=== PATIENT | female | born 1945 | race Caucasian/White ===

== ENCOUNTER → 2019-11-20 19:16 | Outpatient (ROUT) | payer MEDICARE, OTHER, SELFPAY ==
[2019-11-20 19:28] LABS: Aspartate Aminotransferase 20 IU/L (14-36); BUN Creatinine Ratio 21.1 (6-22); Blood Urea Nitrogen 19 mg/dL (7-17); Calcium 9.6 mg/dL (8.4-10.2); Carbon Dioxide 30 mmol/L (22-32); Chloride 103 mmol/L (98-107); Cholesterol 156 mg/dL (140-199); Estimated Glomerular Filt Rate > 60.0 mL/min (>60); Glucose 71 mg/dL (80-110); HDL Cholesterol 53 mg/dL (40-60); HEMOLYSIS < 15 (0-50); LDL Cholesterol Calculated 79 mg/dL (<100); Potassium 3.7 mmol/L (3.4-5.1); Sodium 142 mmol/L (137-145); Triglycerides 121 mg/dL (35-150)
== END ==
PROVIDERS: PCP Internal Medicine; Visit Provider Internal Medicine
DX: I10 Essential (primary) hypertension (principal); E78.2 Mixed hyperlipidemia
CPT/HCPCS: 80048; 80061; 84450

== ENCOUNTER → 2020-11-25 15:12 | Outpatient (ROUT) | payer MEDICARE, BC, SELFPAY ==
[2020-11-25 15:44] LABS: Aspartate Aminotransferase 22 IU/L (14-36); BUN Creatinine Ratio 21.4 (6-22); Blood Urea Nitrogen 18 mg/dL (7-17); Calcium 9.5 mg/dL (8.4-10.2); Carbon Dioxide 35 mmol/L (22-32); Chloride 101 mmol/L (98-107); Cholesterol 166 mg/dL (140-199); Estimated Glomerular Filt Rate > 60.0 mL/min (>60); Glucose 89 mg/dL (80-110); HDL Cholesterol 56 mg/dL (40-60); HEMOLYSIS < 15 (0-50); LDL Cholesterol Calculated 88 mg/dL (<100); Sodium 138 mmol/L (137-145); Triglycerides 108 mg/dL (35-150)
== END ==
PROVIDERS: PCP Internal Medicine; Visit Provider Internal Medicine
DX: I10 Essential (primary) hypertension (principal); E78.2 Mixed hyperlipidemia
CPT/HCPCS: 80048; 80061; 84450

== ENCOUNTER → 2021-12-29 10:05 | Outpatient (CLI) | payer MEDICARE, BC, SELFPAY ==
[2021-12-29 12:05] LABS: Add Manual Diff / Slide Review NO; Basophils Absolute Auto 100 /uL (0-100); Basophils Percent Auto 0.9 % (0-2); Eosinophils Absolute Auto 100 /uL (0-450); Eosinophils Percent Auto 2.3 % (2-4); Hematocrit 40.5 % (36-46); Lymphocytes Absolute Auto 1100 /uL (1100-4500); Lymphocytes Percent Auto 20.1 % (25-40); Mean Corpuscular HGB Conc 34.5 % (30-36); Mean Corpuscular Hemoglobin 30.1 PG (26-34); Mean Corpuscular Volume 87.2 fL (80-100); Monocytes Absolute Auto 400 /uL (0-900); Monocytes Percent Auto 7.8 % (3-14); Neutrophils Absolute Auto 3900 /uL (1500-7000); Neutrophils Percent Auto 68.9 % (50-75); Platelet Count 196 X10^3/uL (150-400); Red Blood Cell Count 4.64 X10^6/uL (4.0-5.2); Red Cell Distribution Width 13.5 % (11.6-14.8); White Blood Cell Count 5.7 X10^3/uL (4.5-11.0)
[2021-12-29 12:14] LABS: Alanine Aminotransferase 15 IU/L (<35); Albumin 4.8 g/dL (3.5-5.0); Albumin Globulin Ratio 1.3 (1.0-2.8); Alkaline Phosphatase 61 U/L (38-126); Aspartate Aminotransferase 24 IU/L (14-36); Bilirubin Total 0.8 mg/dL (0.2-1.3); Blood Urea Nitrogen 20 mg/dL (7-17); Calcium 9.4 mg/dL (8.4-10.2); Carbon Dioxide 32 mmol/L (22-32); Chloride 101 mmol/L (98-107); Cholesterol 188 mg/dL (140-199); Estimated Glomerular Filt Rate > 60 mL/min (>60); Globulin 3.6 g/dL (1.7-4.1); Glucose 94 mg/dL (80-110); HDL Cholesterol 65 mg/dL (40-60); HEMOLYSIS 27 (0-50); LDL Cholesterol Calculated 99 mg/dL (<100); Potassium 3.8 mmol/L (3.4-5.1); Sodium 142 mmol/L (137-145); Total Protein 8.4 g/dL (6.3-8.2); Triglycerides 122 mg/dL (35-150)
[2021-12-29 12:43] LABS: TSH w/ Reflex to FT4 3.33 uIU/mL (0.47-4.68)
== END ==
PROVIDERS: PCP Internal Medicine; Referring Provider Internal Medicine; Visit Provider Internal Medicine
DX: E78.2 Mixed hyperlipidemia (principal); I10 Essential (primary) hypertension
CPT/HCPCS: 36415; 80053; 80061; 84443; 85025

== ENCOUNTER → 2023-01-02 09:14 | Outpatient (CLI) | payer MEDICARE, BC, SELFPAY ==
[2023-01-02 10:25] LABS: Aspartate Aminotransferase 22 IU/L (14-36); BUN Creatinine Ratio 18.6 (6-22); Blood Urea Nitrogen 16 mg/dL (7-17); Calcium 9.5 mg/dL (8.4-10.2); Carbon Dioxide 33 mmol/L (22-32); Chloride 100 mmol/L (98-107); Cholesterol 190 mg/dL (140-199); Estimated Glomerular Filt Rate > 60 mL/min (>60); Glucose 98 mg/dL (80-110); HDL Cholesterol 77 mg/dL (40-60); HEMOLYSIS < 15 (0-50); LDL Cholesterol Calculated 97 mg/dL (<100); Potassium 3.7 mmol/L (3.4-5.1); Sodium 140 mmol/L (137-145); Triglycerides 81 mg/dL (35-150)
== END ==
PROVIDERS: PCP Internal Medicine; Referring Provider Internal Medicine; Visit Provider Internal Medicine
DX: E78.2 Mixed hyperlipidemia (principal); I10 Essential (primary) hypertension
CPT/HCPCS: 36415; 80048; 80061; 84450

== ENCOUNTER → 2024-02-08 14:59 | Outpatient (CLI) | payer MEDICARE, BC, SELFPAY ==
[2024-02-08 17:27] LABS: Aspartate Aminotransferase 21 IU/L (14-36); BUN Creatinine Ratio 22.7 (6-22); Blood Urea Nitrogen 17 mg/dL (7-17); Calcium 8.8 mg/dL (8.4-10.2); Carbon Dioxide 30 mmol/L (22-32); Chloride 103 mmol/L (98-107); Cholesterol 142 mg/dL (140-199); Estimated Glomerular Filt Rate > 60 mL/min (>60); Glucose 107 mg/dL (80-110); HDL Cholesterol 57 mg/dL (40-60); HEMOLYSIS < 15 (0-50); LDL Cholesterol Calculated 33 mg/dL (<100); Potassium 3.7 mmol/L (3.4-5.1); Sodium 139 mmol/L (137-145); Triglycerides 261 mg/dL (35-150)
== END ==
PROVIDERS: PCP Internal Medicine; Referring Provider Internal Medicine; Visit Provider Internal Medicine
DX: I10 Essential (primary) hypertension (principal); E78.2 Mixed hyperlipidemia
CPT/HCPCS: 36415; 80048; 80061; 84450

== ENCOUNTER → 2024-02-22 10:24 | Outpatient (CLI) | payer MEDICARE, BC, SELFPAY ==
--- NOTE | 2024-02-22 10:26 | DI.RAD.S_ITS ---
PROCEDURE: XR DEXA AXIAL SKELETON INDICATIONS: menopausal COMPARISON: [facility], , DEXA AXIAL SKELETON, 10/05/2016, 16:01. FINDINGS: Lumbar Spine: Bone mineral density 1.3-2 g/cm2, T score 2.4. Left Hip: Bone mineral density 0.933 g/cm2, T score -0.1. Left Femoral Neck: Bone mineral density 0.751 g/cm2, T score -0.9. Right Hip: Bone mineral density 0.926 g/cm2, T score -0.1. Right Femoral Neck: Bone mineral density 0.812 g/cm2, T score -0.3. Fracture Risk Calculation (when applicable): 10-year fracture risk of a major osteoporotic fracture 11% and of a hip fracture 1.8 %. (T score greater or equal to -1.0 to: NORMAL) (T score from -1.1 to -2.4: OSTEOPENIA) (T score less than or equal to -2.5: OSTEOPOROSIS) IMPRESSION: Normal bone mineral density Follow-up guidelines as follows: Osteoporosis: Consider a repeat DEXA and Vertebral Fracture Assessment (VFA) exam in 2 years or sooner if medically necessary, to reassess this patient's status. Osteopenia: Consider a repeat DEXA in 2-3 years to reassess this patient's status, or if there is a new clinical indication. Normal: Consider a repeat DEXA in 5 years or sooner, or if there is a new clinical indication. All treatment decisions require clinical judgment and consideration of individual patient factors, including patient preferences, comorbidities, previous drug use, risk factors not captured in the FRAX model (e.g., frailty, falls, vitamin D deficiency, increased bone turnover, interval significant decline in bone density ) and possible under- or over-estimation of fracture risk by FRAX. In addition, the NOF Guide recommends that FDA-approved medical therapies be considered in postmenopausal women and men age >= 50 years with a: * Hip or vertebral (clinical or morphometric) fracture * T-score of <=-2.5 at the spine or hip * Ten-year fracture probability by FRAX of >= 3% for hip fracture or >=20% for major osteoporotic fracture. People with diagnosed cases of osteoporosis or at high risk for fracture should have regular bone mineral density tests. For patients eligible for Medicare, routine testing is allowed once every 2 years. The testing frequency can be increased to one year for patients who have rapidly progressing disease, those who are receiving or discontinuing medical therapy to restore bone mass, or have additional risk factors. Dictated by: Dennis Barry M.D. on 02/22/2024 at 14:17 Approved by: eDnnis Barry M.D. on 02/22/2024 at 14:20
== END ==
LOC: RAD 10:25
PROVIDERS: PCP Internal Medicine; Referring Provider Internal Medicine; Visit Provider Internal Medicine
DX: M85.89 Other specified disorders of bone density and structure, multiple sites (principal)
CPT/HCPCS: 77080

== ENCOUNTER → 2024-06-25 11:13 | Outpatient (CLI) | payer MEDICARE, BC, SELFPAY ==
--- NOTE | 2024-06-25 11:14 | DI.MRI.S_ITS ---
PROCEDURE: MR HIP RT WO CON INDICATIONS: R/O RIGHT HIP ABDUCTOR TEAR TECHNIQUE: Noncontrast coronal T1 spin echo and STIR through the bony pelvis. Coronal and axial T2 fast spin echo with fat saturation, sagittal T1 spin echo, and oblique axial T2 fast spin echo with fat saturation through the hip. COMPARISON: None. FINDINGS: Image quality: Excellent. Bones and joints: Mild fibrovascular end plate change at the left aspect of L5-S1. The marrow signal of the sacrum, and bilateral sacroiliac joints are unremarkable. No acute fracture or dislocation of either hip. No avascular necrosis of either femoral head. No significant degenerative changes of either hip. Tendons and ligaments: The right iliopsoas, and adductor tendon are unremarkable. The right hamstring tendon is unremarkable. There is full-thickness tear of the left gluteal minimus at the greater trochanteric insertion, without tendon retraction. Mild tendinosis of the gluteal medius with high-grade tear. Small right greater trochanteric bursitis. Labrum and cartilage: Circumferential labral tear. No paralabral cyst. Soft tissues: Small T2 hypointensity in the uterus, likely representing a small uterine fibroid, measuring 1.2 cm. IMPRESSION: 1. Full-thickness tear of the left gluteal minimus at the greater trochanteric insertion, without tendon retraction. 2. High-grade tear of the right gluteal medius with mild right greater trochanteric bursitis. Dictated by: Eneida Conner M.D. on 06/25/2024 at 12:32 Approved by: Eneida Conner M.D. on 06/25/2024 at 12:42
== END ==
PROVIDERS: PCP Internal Medicine; Referring Provider Orthopaedic Surgery; Visit Provider Orthopaedic Surgery
DX: S76.012A Strain of muscle, fascia and tendon of left hip, initial encounter (principal); S76.011A Strain of muscle, fascia and tendon of right hip, initial encounter; M70.61 Trochanteric bursitis, right hip; X58.XXXA Exposure to other specified factors, initial encounter
CPT/HCPCS: 73721

== ENCOUNTER → 2025-02-05 14:17 | Outpatient (CLI) | payer MEDICARE, BC, SELFPAY ==
--- NOTE | 2025-02-05 14:21 | DI.MG.S_ITS ---
MM screening mammo BI: 02/05/2025. BI-RADS: 1 CLINICAL: 80-year old female for bilateral screening mammogram. Tyrer-Cuzick lifetime risk of 4.7%. Current reported family history of breast cancer: sister. The patient had a prior left breast biopsy. PRIOR EXAMS: 12/18/23,12/16/22,09/28/21,08/28/20. MAMMOGRAPHY TECHNIQUE: 2D and 3D (tomosynthesis) digital mammographic views obtained, with additional images as needed for full coverage. Current study was also evaluated with a Computer Aided Detection (CAD) system. DENSITY C. The breasts are heterogeneously dense, which may obscure small masses. MAMMOGRAPHY FINDINGS Bilateral: No suspicious mass, asymmetry, microcalcification, or other abnormality seen. IMPRESSION: * No evidence of malignancy. RECOMMENDATIONS Bilateral * Annual screening mammography. OVERALL ASSESSMENT CATEGORY BI-RADS-1: Negative. The [employer] recommends annual screening mammography beginning at age 40 for women with average risk of breast cancer. ELECTRONICALLY SIGNED: Dennis Barry M.D. on 02/06/2025 at 08:16:12 AM PT Interpreting Station ID: [id number]
== END ==
PROVIDERS: PCP Internal Medicine; Referring Provider Internal Medicine; Visit Provider Internal Medicine
DX: Z12.31 Encounter for screening mammogram for malignant neoplasm of breast (principal); R92.333 Mammographic heterogeneous density, bilateral breasts; Z80.3 Family history of malignant neoplasm of breast
CPT/HCPCS: 77063; 77067

== ENCOUNTER → 2025-02-12 08:50 | Outpatient (CLI) | payer MEDICARE, BC, SELFPAY ==
[2025-02-12 10:40] LABS: Aspartate Aminotransferase 22 IU/L (14-36); BUN Creatinine Ratio 16.5 (6-22); Blood Urea Nitrogen 15 mg/dL (7-17); Calcium 9.8 mg/dL (8.4-10.2); Carbon Dioxide 31 mmol/L (22-32); Chloride 101 mmol/L (98-107); Cholesterol 186 mg/dL (140-199); Estimated Glomerular Filt Rate > 60 mL/min (>60); Glucose 85 mg/dL (70-99); HDL Cholesterol 76 mg/dL (40-60); HEMOLYSIS < 15 (0-50); LDL Cholesterol Calculated 93 mg/dL (<100); Potassium 3.8 mmol/L (3.4-5.1); Sodium 139 mmol/L (137-145); Triglycerides 87 mg/dL (35-150)
== END ==
PROVIDERS: PCP Internal Medicine; Referring Provider Internal Medicine; Visit Provider Internal Medicine
DX: I10 Essential (primary) hypertension (principal); E78.2 Mixed hyperlipidemia
CPT/HCPCS: 36415; 80048; 80061; 84450

== ENCOUNTER → 2025-04-09 14:03 | Outpatient (CLI) | payer MEDICARE, BC, SELFPAY ==
[2025-04-09 14:39] LABS: Add Manual Diff / Slide Review NO; Hematocrit 37.0 % (36-46); Hemoglobin 12.7 g/dL (12.0-16.0); Lymphocytes Absolute Auto 1100 /uL (1100-4500); Mean Corpuscular HGB Conc 34.4 % (30-36); Mean Corpuscular Hemoglobin 30.1 PG (26-34); Mean Corpuscular Volume 87.3 fL (80-100); Platelet Count 192 X10^3/uL (150-400)
[2025-04-09 15:01] LABS: Alanine Aminotransferase 15 IU/L (<35); Albumin 4.3 g/dL (3.5-5.0); Albumin Globulin Ratio 1.6 (1.0-2.8); Alkaline Phosphatase 67 U/L (38-126); Blood Urea Nitrogen 18 mg/dL (7-17); Calcium 9.3 mg/dL (8.4-10.2); Carbon Dioxide 27 mmol/L (22-32); Chloride 101 mmol/L (98-107); Estimated Glomerular Filt Rate > 60 mL/min (>60); Globulin 2.7 g/dL (1.7-4.1); Glucose 105 mg/dL (70-99); HEMOLYSIS < 15 (0-50); Lipase 212 U/L (23-300); Potassium 3.9 mmol/L (3.4-5.1); Sodium 136 mmol/L (137-145); Total Protein 7.0 g/dL (6.3-8.2)
== END ==
PROVIDERS: PCP Internal Medicine; Referring Provider Family Medicine; Visit Provider Family Medicine
DX: R10.9 Unspecified abdominal pain (principal)
CPT/HCPCS: 36415; 80053; 83690; 85025

== ENCOUNTER → 2025-04-11 11:27 | Outpatient (CLI) | payer MEDICARE, BC, SELFPAY ==
--- NOTE | 2025-04-11 11:28 | DI.CT.S_ITS ---
PROCEDURE: CT ABDOMEN PELVIS W CON INDICATIONS: abd pain x 1 month TECHNIQUE: After the administration of intravenous contrast, axial sections acquired from the lung bases to the pubic symphysis. Coronal and sagittal reformats were performed. For radiation dose reduction, the following was used: automated exposure control, adjustment of mA and/or kV according to patient size. COMPARISON: None. FINDINGS: Image quality: Diagnostic. Lower Chest: No significant findings. ABDOMEN: Liver: No solid mass. [id number] intrahepatic biliary distension. Gallbladder: There are densely calcified gallstones layering dependently within the gallbladder lumen. The gallbladder wall shows mild thickening and elevated enhancement, as does the common bile duct to a mild degree. The bile duct itself is dilated. No biliary calculus is found Biliary ducts: Dilated in the extrahepatic bile ducts to 1.2 cm. Pancreas: No ductal dilation. Spleen: Size is within normal limits. Adrenal Glands: No adrenal nodules. Kidneys and Ureters: No hydronephrosis. No solid mass. No complex renal cystic lesion which requires follow up. Stomach and Bowel: Normal colonic caliber, without significant wall thickening. Peritoneum: No abnormal intraperitoneal fluid. No free air. Ventral Wall: No significant ventral hernia. Abdominal Nodes: No retroperitoneal or mesenteric adenopathy by size criteria. Vessels: Aorta and inferior vena cava are normal in size. PELVIS: Pelvic Organs: Unremarkable. Bladder: No bladder wall thickening, accounting for underdistention. Pelvic Nodes: No enlarged lymph nodes. Miscellaneous: No inguinal hernias are seen. Bones: No aggressive osseous abnormality. IMPRESSION: 1. Iqsb-nf-uucdogqh intrahepatic and extrahepatic biliary dilatation without visualized evidence of a calcified stone within the bile ducts. Generally if a set of densely calcified gallstones are seen within the gallbladder lumen and a calcified gallstone has migrated into the bile ducts distally it is easily visible by CT scanning. However, depending on the clinical status follow-up by MR cholangiogram may be warranted versus retrograde cholangiography for most accurate assessment of cause of biliary prominence. 2. Mild gallbladder wall thickening and mild elevated contrast enhancement of the mucosal surfaces of the gallbladder and to a lesser degree the common bile duct are noted. Mild cholangitis should be considered. Biliary colic also may be present given these findings-please correlate clinically. 3. A distal common bile duct mass or ampullary mass is not seen cannot be entirely excluded by these findings. Dictated by: Bill Zelaya M.D. on 04/11/2025 at 16:22 Approved by: Bill Zelaya M.D. on 04/11/2025 at 16:28
== END ==
PROVIDERS: PCP Internal Medicine; Referring Provider Family Medicine; Visit Provider Family Medicine
DX: K80.20 Calculus of gallbladder without cholecystitis without obstruction (principal); K83.8 Other specified diseases of biliary tract; R10.9 Unspecified abdominal pain
CPT/HCPCS: 74177; Q9967

== ENCOUNTER → 2025-04-17 11:36 | Outpatient (CLI) | payer MEDICARE, BC, SELFPAY ==
--- NOTE | 2025-04-17 11:37 | DI.US.S_ITS ---
PROCEDURE: US ABDOMEN LIMITED INDICATIONS: abnormal CT findings TECHNIQUE: Real-time focused scanning was performed of the abdomen, with image documentation. COMPARISON: [facility], CT, CT ABDOMEN PELVIS W CON, 04/11/2025, 12:46. FINDINGS: The liver is normal in size and demonstrates no suspicious lesions. Nonmobile stone/sludge can be seen within the gallbladder. The gallbladder wall is not thickened, measuring 3 mm or less. No specific pericholecystic fluid is seen. The sonographic Fall sign is negative. The common bile duct is dilated to 10 mm. The pancreas is not well seen. IMPRESSION: Nonmobile stone/sludge can be seen within the gallbladder. The common bile duct is mildly dilated to 10 mm. If clinically appropriate, an MRCP could be considered for further evaluation (assuming that there is no contraindication to MRI). Dictated by: Luiz Meza M.D. on 04/17/2025 at 11:53 Approved by: Luiz Meza M.D. on 04/17/2025 at 11:56
== END ==
LOC: US 11:37
PROVIDERS: PCP Internal Medicine; Referring Provider Internal Medicine; Visit Provider Internal Medicine
DX: R93.89 Abnormal findings on diagnostic imaging of other specified body structures (principal); K83.8 Other specified diseases of biliary tract
CPT/HCPCS: 76705

== ENCOUNTER → 2025-04-21 08:51 | Outpatient (CLI) | payer MEDICARE, BC, SELFPAY ==
[2025-04-21 10:05] LABS: Alanine Aminotransferase 17 IU/L (<35); Albumin 4.6 g/dL (3.5-5.0); Albumin Globulin Ratio 1.5 (1.0-2.8); Alkaline Phosphatase 60 U/L (38-126); Blood Urea Nitrogen 12 mg/dL (7-17); Calcium 9.5 mg/dL (8.4-10.2); Carbon Dioxide 28 mmol/L (22-32); Chloride 99 mmol/L (98-107); Estimated Glomerular Filt Rate > 60 mL/min (>60); Globulin 3.0 g/dL (1.7-4.1); Glucose 92 mg/dL (70-99); HEMOLYSIS < 15 (0-50); Magnesium 2.1 mg/dL (1.6-2.3); Potassium 4.0 mmol/L (3.4-5.1); Sodium 136 mmol/L (137-145); Total Protein 7.6 g/dL (6.3-8.2)
[2025-04-21 10:37] LABS: TSH w/ Reflex to FT4 4.04 uIU/mL (0.47-4.68)
== END ==
PROVIDERS: PCP Internal Medicine; Referring Provider Internal Medicine; Visit Provider Internal Medicine
DX: K59.00 Constipation, unspecified (principal); R10.9 Unspecified abdominal pain; K83.8 Other specified diseases of biliary tract
CPT/HCPCS: 36415; 80053; 83735; 84443

== ENCOUNTER → 2025-04-22 16:07 | Outpatient (CLI) | payer MEDICARE, BC, SELFPAY ==
--- NOTE | 2025-04-22 16:09 | DI.MRI.S_ITS ---
PROCEDURE: MR ABDOMEN WO CON INDICATIONS: biliary diltation, abd pain TECHNIQUE: Coronal HASTE through the abdomen, axial 2-D FLASH in- and [id number], and breath-hold T2 FSE with fat saturation through the biliary system and pancreas. Oblique coronal and axial thin-slice HASTE, radial thick-slab HASTE centered on the extrahepatic bile ducts. Intravenous secretin: Not requested. COMPARISON: [facility], CT, CT ABDOMEN PELVIS W CON, 04/11/2025, 12:46. [facility], US, US ABDOMEN LIMITED, 04/17/2025, 11:49. FINDINGS: Image quality: Motion degraded Lower chest: Unremarkable lung bases Liver: Unremarkable Gallbladder and biliary system: Cholelithiasis. CBD is mildly dilated at 0.8 cm. There is no clear filling defect on MRI images Pancreas: No ductal dilation Spleen: Nonenlarged Adrenals: No discrete nodules Kidneys: No solid renal mass. No hydronephrosis. Vessels and lymph nodes: No enlarged lymph nodes by size criteria. No abdominal aortic aneurysm Bowel and peritoneum: No small bowel obstruction. No pathologic ascites Body wall: Unremarkable Bones: Leftward lumbar spinal curvature. Degenerative changes. IMPRESSION: Persistent mildly dilated CBD. Cholelithiasis. No discrete stones are seen on MRI. However, this study is moderately motion degraded. Consider repeat MRI attempt or ERCP if there is sufficient concern. Dictated by: Jamil Ricketts M.D. on 04/23/2025 at 13:28 Approved by: Jamil Ricketts M.D. on 04/23/2025 at 13:33
== END ==
PROVIDERS: PCP Internal Medicine; Referring Provider Internal Medicine; Visit Provider Internal Medicine
DX: R10.9 Unspecified abdominal pain (principal); K83.8 Other specified diseases of biliary tract; K59.00 Constipation, unspecified; K80.20 Calculus of gallbladder without cholecystitis without obstruction
CPT/HCPCS: 74181

== ENCOUNTER 2025-07-16 08:28 | Day surgery (SDC) | payer MEDICARE, BC, SELFPAY ==
[2025-07-02 14:45] VITALS: BMI 25.9
[2025-07-16] VITALS (11 sets, daily range): BP systolic 162–196; BP diastolic 72–90; PULSE 59–79; RESP 12–25; TEMP 36.7–36.9; O2SAT 92–96
--- NOTE | 2025-07-16 | DI.RAD.S_ITS ---
PROCEDURE: XR CHOLANGIOGRAM OPERATIVE
[2025-07-16] MEDS: ACETAMINOPHEN 325 MG TABLET 975 MG PO (09:13)
[2025-07-16] MEDS: LACTATED RINGERS 1,000 ML 42 ML IV (09:13)
--- NOTE | 2025-07-16 12:50 | P.HP_ITS ---
History of Present Illness
--- NOTE | 2025-07-16 12:50 | PM.HP.IH.1 ---
History of Present Illness History of Present Illness Date Patient Seen: 07/16/25 Time Patient Seen: 12:51 Chief complaint: SDC Narrative: Isabel is a 80-year-old woman with symptomatic cholelithiasis and a slightly enlarged common bile duct. She is consented for a robotic cholecystectomy with intraoperative cholangiogram. Her pain has been mild recently. See the prior office note for details. [facility] Medical History (Updated 05/05/25 @ 11:11 by Manny Morales MD) Cholelithiasis Choledocholithiasis Menopausal syndrome Mixed hyperlipidemia Essential hypertension Surgical History Anesthesia Fractured elbow History of bladder surgery Skin cancer History of tonsillectomy (~1956) Family History Grandfather Cancer Grandmother Cancer Father Diabetes mellitus Mother Heart disease Hyperlipidemia High cholesterol Stroke Sister Stroke Sister Cancer Social History Smoking Status: Never smoker Meds Home Medications and Allergies Home Medications ?Medication ?Instructions ?Recorded ?Confirmed ?Type cholecalciferol (vitamin D3) 25 25 mcg PO DAILY 12/29/21 07/16/25 History mcg (1,000 unit) capsule mecobalamin (vitamin B12) 1,000 1,000 mcg PO DAILY 12/29/21 07/16/25 History mcg chewable tablet multivitamin 1 tab PO DAILY 12/29/21 07/16/25 History vit C 250 mg-vit E 90 mg-zinc 40 1 tab PO BID 11/14/24 07/16/25 History mg-copper 1 [id number]-odpxqa capsule (PreserVision AREDS-2) estradiol 10 mcg vaginal tablet 10 mcg vaginal 2XW #24 tabs 02/20/25 07/16/25 Rx (Vagifem) hydrochlorothiazide 25 mg tablet 12.5 mg (1/2 x 25 mg) PO DAILY #45 02/20/25 07/16/25 Rx tabs lisinopril 5 mg tablet 5 mg PO QDAY #90 tabs 02/20/25 07/16/25 Rx rosuvastatin 5 mg tablet 5 mg PO 3XW #40 tabs 02/20/25 07/16/25 Rx coenzyme [id number]-gvrbtrx E 100 mg-100 1 cap PO DAILY 04/09/25 07/16/25 History unit capsule Allergies Allergy/AdvReac Type Severity Reaction Status Date / Time No Known Drug Allergies Allergy Verified 07/16/25 08:44 Exam Vital Signs (past 8 hours): - 07/16/25 09:00 Temperature 98.0 F Pulse Rate 77 Respiratory Rate 15 Blood Pressure 162/78 H Pulse Oximetry 93 Oxygen Delivery Method Room Air Oxygen Delivery Method Room Air Const General: No acute distress Assessment & Plan Assessment and plan (1) Cholelithiasis: Qualifiers: Cholelithiasis location: other site Biliary obstruction: with biliary obstruction Qualified Code(s): K80.81 - Other cholelithiasis with obstruction Status: Acute Plan Robotic cholecystectomy with intraoperative cholangiogram Time-Based Coding :: [TOTAL MINUTES] spent with patient and on the chart (including review of chart, obtaining history, exam, reviewing outside data, placing orders, documenting exam and treatment plan, and counseling patient) on [DATE]. PROFEE Special Education Administrator Document charge(s): No
--- NOTE | 2025-07-16 14:13 | SUR.OPER ---
Supine on padded OR bed, head on pillow, safety strap placed across patient shoulders, arms padded and tucked at sides, legs uncrossed, bilateral feet pressed firmly against padded foot board, safety belt at thigh, tape over blanket over lower legs . all positioning approved and directed by surgeon prior to start of procedure.
--- NOTE | 2025-07-16 15:32 | P.OP_ITS ---
Operative Date/Time/Diagnoses
--- NOTE | 2025-07-16 15:32 | PM.OP.1 ---
Operative Date/Time/Diagnoses Date of procedure: 07/16/25 Time of procedure: 15:32 Pre-op diagnosis: Symptomatic cholelithiasis Post-op diagnosis: same Procedure & Clinicians Procedure: Robotic cholecystectomy with intraoperative cholangiogram Same procedure(s) as scheduled: Yes Surgeon: Pino Lozano Assisted?: Yes Biomedical Analytical Scientist: Santos Michel Anesthesia Type: General Operative Notes Findings: Large gallbladder, no common duct filling defects or obstruction Applied: none Estimated Blood Loss (mL): 8 Procedure in detail: The patient was given preoperative antibiotics. The patient was brought to the operating room, placed on the table in the supine position. General endotracheal anesthesia was induced. Both arms were tucked. The abdomen was prepped and draped. A time-out was performed. We made a 1 cm infraumbilical incision. We dissected down to the anterior sheath using cautery. The anterior sheath was divided with the cautery. A Arabella clamp was used to grasp the superior leaf of the fascia. We pierced the peritoneum with a Peon clamp. The 12 mm port was placed and the abdomen was insufflated to 15 mmHg. The endoscope was inserted. There was no evidence of any injury from the entry. Next, an 8 mm port was placed in the right lower quadrant and 2 two mm ports were placed in the left abdomen.. The patient was then positioned in 15? of reverse Trendelenburg and the table was tilted slightly to the left. The robot was brought in from the patient's left side and docked. A fenestrated bipolar was placed through arm 1, the hook cautery through arm 3 and the ProGrasp through arm 4. The gallbladder was grasped at the dome with the ProGrasp and retracted cephalad. There were some filmy adhesions to the inferior lobe of the right liver which were carefully dissected with cautery to allow full retraction of the gallbladder. The gallbladder was quite distended and reached well beyond the edge of the liver. We then dissected the cystic structures with hook cautery. We obtained a critical view. 2.5 mg of ICG were administered and firefly was used to confirm the location of the cystic duct. Next, a cholangiogram was performed using the 4 Arabic ureteral catheter through a 14 gauge Angiocath placed in the right upper quadrant secured within the cystic duct with a vessel loop. The cystic duct appeared to be quite short in the ureteral catheter was traversing all the way into the common duct. There was good flow of contrast into the duodenum and liver with no obvious filling defects. We then placed hemoclips on the cystic duct and artery and divided the cystic duct and artery between the clips. The gallbladder was then dissected off the liver and placed in a specimen retrieval bag along with the vessel loop. A small amount of blood and bile was suctioned out of the right upper quadrant.. We then removed the 8 mm ports under direct vision we removed the 12 mm port. We then injected some local into the fascia and closed the fascia at the infraumbilical incision with two interrupted 0 Vicryl sutures. The skin incisions were closed with 4 Monocryl and Steri-Strips were applied. Band-Aids were applied over the Steri-Strips. Specimen: Gallbladder and contents Santos HUDSON provided assistance with exposure, retraction and closure of incisions. Complications: none Post-operative Condition: stable Disposition: PACU
[2025-07-16] MEDS: LABETALOL 20 MG/4 ML SYRINGE 5 MG IV (15:48)
[2025-07-16] MEDS: KETOROLAC 30 MG/ML VIAL IV (16:09)
[2025-07-16] MEDS: ONDANSETRON 4 MG/2 ML INJ IV (16:21)
== END 2025-07-16 16:47 | disposition home or self-care (01) ==
PROVIDERS: PCP Internal Medicine; Referring Provider Surgery; Visit Provider Surgery
PROC: 0FT44ZZ Resection of Gallbladder, Percutaneous Endoscopic Approach (ICD-10-PCS; CPT 47563; principal; 2025-07-16 09:45)
DX: K80.10 Calculus of gallbladder with chronic cholecystitis without obstruction (principal)
CPT/HCPCS: 47563; 74300; S2900; J0689; J1100; J1171; J1885; J2405; J2704; J3010; J7120; Q9967